=== PATIENT | female | born 1985 | race Caucasian/White ===

== ENCOUNTER 2024-10-15 13:04 | Emergency (ER) | payer SELFPAY ==
[2024-10-15 13:11] VITALS: BP 136/73; PULSE 84; TEMP 36.9; O2SAT 100; BMI 17.2
--- NOTE | 2024-10-15 13:31 | ED.DENTAL1 ---
HPI - Dental/Oral General Chief complaint: Dental/Oral Stated complaint: DENTAL INFECTION Time Seen by Provider: 10/15/24 13:09 Source: patient Mode of arrival: walk-in Limitations: no limitations History of Present Illness HPI Narrative: 39-year-old female presents to the emergency department with complaint of dental and facial pain. Onset a few days ago with progressive worsening today. Has had history of dental infections in the past and states this feels similar. Reports history of poor dentition. Notes pain going into her jaw and up to her left ear. Locates the left lower frontal dentition just left of midline. Denies any fever, chills, difficulty swallowing. Quality:?As above Severity:?Moderate Timing:?As above, worsening Context: Normal setting and activity? Modifying factors:?Pain worse with palpation Associated symptoms: As above Teeth map:  1. tooth causing pain Related Data Previous Rx's ?Medication ?Instructions ?Recorded clindamycin HCl 300 mg capsule 300 mg PO Q6H 7 days #28 caps 10/15/24 Allergies Allergy/AdvReac Type Severity Reaction Status Date / Time amoxicillin Allergy Mild Hives Verified 10/15/24 13:11 Penicillins Allergy Mild Hives Verified 10/15/24 13:11 Review of Systems ROS Narrative CONST: Denies fever, chills HENT: +dental problem, facial pain. Feels like her face is a little swollen. Denies congestion, ear pain, mouth sores, rhinorrhea EYES: Denies eye discharge, eye pain SKIN: Denies color change PFSH PFSH Social History Little interest or pleasure in doing things: not at all Feeling down, depressed, or hopeless: not at all Exam Narrative Exam Narrative: Vital signs noted Nurses notes reviewed CONST: Nontoxic, well appearing, well nourished, in no distress.? No diaphoresis.?? HENT: normocephalic, atraumatic.? Normal hearing.? Normal appearing ext ears, canals, TM's.? No nasal discharge.? MOUTH/THROAT: + caries throughout of varying levels.? There are multiple missing teeth. Tooth #24 is tender with severe saries.? No surrounding swelling, fluctuance.? No facial swelling, palpable abscess, trismus.? Patient maintaining own secretions.? Moist mucous membranes, no increased oropharyngeal erythema, edema, exudate.? No submandibular or submental tenderness.? No tenderness or elevation of the roof of the mouth. EYES: clear, no injections, discharge NECK: supple, no lymphadenopathy NEURO: A&Ox3 SKIN: warm, dry PSYCHIATRIC: normal mood and affect Constitutional Vital Signs, click to edit/add: Last Vital Signs Temp 98.4 F 10/15/24 13:11 Pulse 84 10/15/24 13:11 Resp 16 10/15/24 13:11 BP 136/73 10/15/24 13:11 Pulse Ox 100 10/15/24 13:11 O2 Del Method Room Air 10/15/24 13:11 Course Vital Signs Vital signs: Vital Signs Temperature 98.4 F 10/15/24 13:11 Pulse Rate 84 10/15/24 13:11 Respiratory Rate 16 10/15/24 13:11 Blood Pressure 136/73 10/15/24 13:11 Pulse Oximetry 100 10/15/24 13:11 Oxygen Delivery Method Room Air 10/15/24 13:11 Temperature 98.4 F 10/15/24 13:11 Pulse Rate 84 10/15/24 13:11 Respiratory Rate 16 10/15/24 13:11 Blood Pressure 136/73 10/15/24 13:11 Pulse Oximetry 100 10/15/24 13:11 Oxygen Delivery Method Room Air 10/15/24 13:11 MDM - Dental/Oral MDM Narrative Medical decision making narrative: This is a pleasant 39-year-old female who presents to the emergency department for evaluation of dental pain, concern for infection On arrival, afebrile, vitals stable Exam, nontoxic, well-appearing patient in no distress. She has multiple missing teeth. She has teeth that display severe caries. Locates dental pain to tooth #24 with radiation going along her jawline. Ears are clear. No submental or submandibular tenderness on exam. No elevation of the roof of her mouth. She is maintaining her own secretions Favor odontalgia, rule out early infection Ludewig's angina, dental abscess less likely based on physical exam History and Record Review Additional records reviewed:no records Diagnostic testing considered but not performed:CT. no physical exam findings that would warrant Disposition ? The patient was discharged. Prescriptions sent to pharmacy: Clindamycin. She was given dental analgesia in the emergency department. Plan: Patient will be discharged to home.? Condition at time of disposition: stable.? Advised to follow up with referral provider, name and number placed on discharge paperwork. Advised to return for any worsening and/or development of new, concerning signs or symptoms PLEASE NOTE: Portions of the medical record may have been produced using electronic donations attendant and may contain errors with respect to translation of words which may not have been identified prior to finalization of the chart. Discharge Plan Discharge Chief Complaint: Dental/Oral Clinical Impression: Odontalgia, Dental infection Patient Disposition: Home, Self-Care Time of Disposition Decision: 13:31 Condition: Good Mode of Transportation: Private Vehicle Prescriptions / Home Meds: New clindamycin HCl 300 mg capsule 300 mg PO Q6H 7 Days Qty: 28 0RF Print Language: Swedish Additional Instructions: TOOTHACHE: Your exam shows that your toothache is probably due to tooth decay and infection. Poor dental care is the main cause of this problem. Swelling and redness around a painful tooth often means you have a dental abscess. Pain medicine and antibiotics can help reduce symptoms, but you will need to see a dentist within the next few days to have your problem properly treated. Fillings or root canal work may be needed to save your tooth. If the problem is severe, your tooth may need to be pulled. Please return here right away if you have a fever over 101F, can't swallow, or develop severe swelling. DENTAL CARE SERVICES Here are low cost places you can for dental care. [facility] [id number] [place], [place] Extractions ? call for appt (one tooth per patient) [facility] ? [facility] ([facility]) only [address]) Services: Cleanings only! (includes xrays, fluoride tx, oral exam) Hours: Monday ? Monday at 9:00am Fee: Adults - $10.00 Children ? 12 or under $6.00 [facility] ? [facility] By main entrance of [facility] (off of [address]) Services: Full service dental care. Call for appt. Fee: Flat fee, Medicaid, and insurance Hours: 9am-11:30am & 1:00pm-4:00pm ? Monday ? Monday After Hours Dental Emergencies ? [facility] ? ask for Oral Surgery Resident on-call [facility] [address] [facility] ([facility]) Need #, Insurance available, [facility] Services: Full service dental care Hours: Monday ? Monday at 8:30am-5:00pm. Emergencies at 8:00am, noon to 1:00pm Fee: Sliding scale. Must pay at time of service (mccracken, check, credit card or money order) or bring current Medicaid card or proof of insurance. Bring photo Identification with address. Referrals: Physician,Non-Staff, MD [Primary Care Provider] - 1 week
[2024-10-15] MEDS: BENZOCAINE 30 ML, lidocaine HCL 15 ML MM (13:49)
== END 2024-10-15 13:50 | disposition home or self-care (01) ==
PROVIDERS: Emergency Provider Emergency Medicine
DX: K04.7 Periapical abscess without sinus (principal); K08.89 Other specified disorders of teeth and supporting structures
CPT/HCPCS: 99283